=== PATIENT | female | born 1975 | race African-American/Black ===

== ENCOUNTER 2019-06-08 10:55 | Inpatient (IN) | payer OTHER ==
[2019-06-08 11:23] VITALS: BMI 24.5
--- NOTE | 2019-06-08 13:11 | HP ---
COWS - Scale Resting Pulse: 0= [place] 80 or Below Sweatin=Flushed/Facial Moisture Restless Observation: 1= Difficult to Sit Still Pupil Size: 1= Pupils >than Normal Bone or Joint Aches: 2= Severe Diffuse Aches Runny Nose/ Eye Tearin= Runny Nose/Eyes GI Upset > 30mins: 2= Nausea/Diarrhea Tremor Observation: 2= Slight Tremor Visible Yawning Observation: 2= >3x During Session Anxiety or Irritability: 2=Irritable/Anxious Goose Flesh Skin: 3=Piloerection COWS Score: 19 CIWA Score Nausea/Vomitin Muscle Tremors: 2 Anxiety: 3 Agitation: 3 Paroxysmal Sweats: 2 Orientation: 0-Oriented Tacttile Disturbances: 2-Mild Itch/Numbness/Burn Auditory Disturbances: 0-None Visual Disturbances: 0-None Headache: 2-Mild CIWA-Ar Total Score: 16 - Admission Criteria [facility]ASAS Guidelines: Admission for Medically Managed Detox: Requires at least one of the followin. CIWA greater than 12 2. Seizures within the past 24 hours 3. Delirium tremens within the past 24 hours 4. Hallucinations within the past 24 hours 5. Acute intervention needed for co occurring medical disorder 6. Acute intervention needed for co occurring psychiatric disorder 7. Severe withdrawal that cannot be handled at a lower level of care (continued vomiting, continued diarrhea, abnormal vital signs) requiring intravenous medication and/or fluids 8. Patient presents the following: CIWA greater than 12 Admission Criteria Met: Admission criteria met Admission ROS [facility] Chief Complaint: I want detox from alcohol and heroin Allergies/Adverse Reactions: Allergies Allergy/AdvReac Type Severity Reaction Status Date / Time No Known Allergies Allergy Verified 06/08/19 11:18 History of Present Illness: Patient is a 44 years old female who presents for detox from alcohol and heroin. She reports her last treatment was at [facility] 6 weeks ago. She reports blackout 6 months ago, denies seizures related to her illicit drug use. Exam Limitations: No Limitations - Ebola screening Have you traveled outside of the country in the last 21 days: No (N) Have you had contact with anyone from an Ebola affected area: No Have you been sick,other than usual withdrawal symptoms: No Do you have a fever: No - Review of Systems Constitutional: Chills, Loss of Appetite, Changes in sleep, Unintentional Wgt. Loss EENT: reports: Blurred Vision, Nose Congestion Respiratory: reports: No Symptoms reported Cardiac: reports: No Symptoms Reported GI: reports: Nausea, Poor Appetite, Poor Fluid Intake, Vomiting, Abdominal cramping : reports: No Symptoms Reported Musculoskeletal: reports: Back Pain, Joint Pain, Muscle Pain, Muscle Weakness Integumentary: reports: Flushing Neuro: reports: Headache, Numbness, Tremors Endocrine: reports: No Symptoms Reported Hematology: reports: No Symptoms Reported Psychiatric: reports: No Sypmtoms Reported Other Systems: Reviewed and Negative Patient History - Patient Medical History Hx Anemia: No Hx Asthma: No Hx Chronic Obstructive Pulmonary Disease (COPD): No Hx Cancer: No Hx Cardiac Disorders: No Hx Congestive Heart Failure: No Hx Hypertension: No Hx Hypercholesterolemia: No Hx Pacemaker: No HX Cerebrovascular Accident: No Hx Seizures: No Hx Dementia: No Hx Diabetes: No Hx Gastrointestinal Disorders: No Hx Liver Disease: No Hx Genitourinary Disorders: No Hx Sexually Transmitted Disorders: No Hx Renal Disease (ESRD): No Hx Thyroid Disease: No Hx Human Immunodeficiency Virus (HIV): No Hx Hepatitis C: No Hx Depression: No Hx Suicide Attempt: No Hx Bipolar Disorder: No Hx Schizophrenia: No - Patient Surgical History Past Surgical History: No - PPD History Previous Implant?: Yes Documented Results: Negative w/o proof Implanted On Prior R Admission?: No PPD to be Administered?: Yes - Reproductive History Patient is a Female of Child Bearing Age (11 -55 yrs old): Yes Last Menstrual Period: 05/20/19 Patient : No - Smoking Cessation Smoking history: Current every day smoker Have you smoked in the past 12 months: Yes Aproximately how many cigarettes per day: 20 Hx Chewing Tobacco Use: No Initiated information on smoking cessation: Yes 'Breaking Loose' booklet given: 06/08/19 - Substances abused Alcohol Substance route: Oral Frequency: Daily Amount used: 6-8 24oz beers, 1pint of vodka Age of first use: 11 Date of last use: 06/08/19 Heroin Substance route: Inhalation Frequency: Daily Amount used: 20 bags/day Age of first use: 41 Date of last use: 06/07/19 Admission Physical Exam BHS - Vital Signs Vital Signs: Vital Signs - 24 hr 06/08/19 11:19 Temperature 98.5 F Pulse Rate 73 Respiratory 14 Rate Blood Pressure 150/92 - Physical General Appearance: Yes: Mild Distress HEENTM: Yes: Hearing grossly Normal, Normocephalic, Normal Voice, JESSE Respiratory: Yes: Chest Non-Tender, Lungs Clear, Normal Breath Sounds, No Respiratory Distress, No Accessory Muscle Use Neck: Yes: No masses,lesions,Nodules, Supple Breast: Yes: Breast Exam Deferred Cardiology: Yes: Regular Rhythm, Regular Rate, S1, S2 Abdominal: Yes: Normal Bowel Sounds, Non Tender, Soft Genitourinary: Yes: Within Normal Limits Back: Yes: Normal Inspection Musculoskeletal: Yes: Gait Steady, Back pain, Muscle Pain Extremities: Yes: Tremors Neurological: Yes: Alert, Normal Mood/Affect, Normal Response Integumentary: Yes: Clammy, Other (several scars from picking skin) Lymphatic: Yes: Within Normal Limits - Diagnostic (1) Alcohol dependence, uncomplicated Current Visit: Yes Status: Acute (2) Heroin addiction Current Visit: Yes Status: Acute (3) Nicotine addiction Current Visit: Yes Status: Acute Qualifiers: Nicotine product type: cigarettes Substance use status: uncomplicated Qualified Code(s): F17.210 - Nicotine dependence, cigarettes, uncomplicated (4) Cocaine abuse Current Visit: Yes Status: Acute Cleared for Admission [facility] - Detox or Rehab [facility] Level of Care: Medically Managed Detox Regimen/Protocol: Methadone/Librium Claeared for Rehab Admission: Yes Breathalyzer - Breathalyzer Breathalyzer: 0 Urine Drug Screen - Test Device Lot number: [id number] Expiration date: 02/15/21 - Control Is test valid?: Yes - Results Drug screen NEGATIVE: No Urine drug screen results: SHANA-Cocaine, FEN-Fentanyl, MOP-Opiates Inpatient Rehab Admission - Rehab Decision to Admit Inpatient rehab admission?: No
[2019-06-08] MEDS ORDERED: BISMUTH SUBSALICYLATE 524 MG/30 ML UD PO PRN (13:18)
[2019-06-08] MEDS ORDERED: MAGNESIUM HYDROX 2400MG/30ML ORAL SUSPENSION 30 ML CUP PO PRN (13:18)
[2019-06-08] MEDS ORDERED: NICOTINE POLACRILEX 2 MG GUM BUC PRN (13:18)
[2019-06-08] MEDS ORDERED: MAGNESIUM CITRATE 300 ML BOTTLE PO PRN (13:18)
[2019-06-08] MEDS ORDERED: cloNIDine HCL 0.1 MG TABLET PO PRN (13:18)
[2019-06-08] MEDS ORDERED: METHOCARBAMOL 500 MG TABLET PO PRN (13:18)
[2019-06-08] MEDS ORDERED: chlordiazePOXIDE HCL 25 MG CAPSULE PO PRN (13:18)
[2019-06-08] MEDS ORDERED: MELATONIN 5 MG TABLETS PO PRN (13:18)
[2019-06-08] MEDS ORDERED: IBUPROFEN 400 MG TABLET (FP) PO PRN (13:18)
[2019-06-08] MEDS ORDERED: NALOXONE HCL 0.4 MG/ML VIAL IM PRN (13:18)
[2019-06-08] MEDS ORDERED: MAG HYDROX/AL HYDROX/SIMETH 30 ML UNIT-DOSE CUP PO PRN (13:18)
[2019-06-08] MEDS ORDERED: METHADONE HCL 10 MG TABLET (FOR DETOX USE ONLY) PO ONE (13:18)
[2019-06-08] MEDS ORDERED: hydrOXYzine PAMOATE 25 MG CAPSULE (FP) PO PRN (13:18)
[2019-06-08] MEDS ORDERED: ACETAMINOPHEN 325 MG TABLET (FP) PO PRN ×2 (13:18)
[2019-06-08] MEDS ORDERED: MENTHOL/PHENOL 1 EACH UD MM PRN (13:18)
[2019-06-08] MEDS: NICOTINE 14 MG/24 HOURS TOPICAL PATCH TD SCH (15:20)
[2019-06-08] MEDS: chlordiazePOXIDE HCL 25 MG CAPSULE PO SCH ×2 (17:46→22:13)
[2019-06-08] MEDS ORDERED: ONDANSETRON *ODT* 4 MG TABLET SL PRN (19:00)
[2019-06-08] MEDS: THIAMINE HCL 100 MG TABLET (FP) PO SCH (22:13)
[2019-06-09] MEDS: chlordiazePOXIDE HCL 25 MG CAPSULE PO SCH ×4 (05:51→22:12)
[2019-06-09 09:18] LABS: HEMATOCRIT 43.3 % (32.4-45.2); HEMOGLOBIN 13.9 GM/dL (10.7-15.3); MCH 28.9 pg (25.7-33.7); MCHC 32.2 g/dl (32.0-36.0); MEAN CELL VOLUME 89.7 fl (80-96); MEAN PLT VOLUME 9.8 fl (7.5-11.1); PLATELET COUNT 239 K/MM3 (134-434); RBC 4.83 M/mm3 (3.60-5.2); RDW 15.5 % (11.6-15.6); WHITE BLOOD COUNT 10.5 K/mm3 (4.0-10.0)
[2019-06-09 09:22] LABS: ALBUMIN 3.4 g/dl (3.4-5.0); BILIRUBIN,TOTAL 0.5 mg/dL (0.2-1); CALCIUM 9.3 mg/dL (8.5-10.1); CREATININE 1.1 mg/dL (0.55-1.3); POTASSIUM 3.3 mmol/L (3.5-5.1); TOT PROT 6.9 g/dl (6.4-8.2)
[2019-06-09] MEDS ORDERED: METHADONE HCL 10 MG TABLET (FOR DETOX USE ONLY) ONE (09:39)
[2019-06-09] MEDS ORDERED: METHADONE HCL 5 MG TABLET (FOR DETOX USE ONLY) ONE (09:39)
[2019-06-09] MEDS ORDERED: METHADONE (DETOX) 20 MG, METHADONE (DETOX) 5 MG PO ONE (10:00)
[2019-06-09] MEDS: NICOTINE 14 MG/24 HOURS TOPICAL PATCH TD SCH (10:17)
[2019-06-09] MEDS: PRENATAL VITAMINS W/ FOLIC ACID TABLET (FP) PO SCH (10:18)
--- NOTE | 2019-06-09 13:37 | PN ---
S CIWA - CIWA Score Nausea/Vomitin-Mild Nausea/No Vomiting Muscle Tremors: 4-Moderate,w/Arms Extend Anxiety: 3 Agitation: 3 Paroxysmal Sweats: 3 Orientation: 0-Oriented Tacttile Disturbances: 0-None Auditory Disturbances: 0-None Visual Disturbances: 0-None Headache: 0-None Present CIWA-Ar Total Score: 14 BHS COWS - Scale Resting Pulse: 0= [place] 80 or Below Sweatin= Chills/Flushing Restless Observation: 3= Extraneous Movement Pupil Size: 0= Normal to Room Light Bone or Joint Aches: 2= Severe Diffuse Aches Runny Nose/ Eye Tearin= Runny Nose/Eyes GI Upset > 30mins: 3= Vomiting/Diarrhea Tremor Observation of Outstretched Hands: 2= Slight Tremor Visible Yawning Observation: 0= None Anxiety or Irritability: 2=Irritable/Anxious Goose Flesh Skin: 0=Smooth Skin COWS Score: 15 BHS Progress Note (SOAP) Subjective: Anxious, restless, interrupted sleep, c/o left knee pain from arthritis stating she uses knee brace at home, requesting emeli bandage since knee brace not available. Objective: 06/09/19 13:35 Last Vital Signs Temp Pulse Resp BP Pulse Ox 97.9 F 80 16 113/68 06/09/19 13:12 06/09/19 13:12 06/09/19 13:12 06/09/19 13:12 Laboratory Tests 06/09/19 06/09/19 06/09/19 07:40 07:40 07:40 WBC 10.5 H RBC 4.83 Hgb 13.9 Hct 43.3 MCV 89.7 MCH 28.9 MCHC 32.2 RDW 15.5 Plt Count 239 MPV 9.8 Sodium 141 Potassium 3.3 L Chloride 106 Carbon Dioxide 25 Anion Gap 10 BUN 7.0 Creatinine 1.1 Est GFR (CKD-EPI)AfAm 69.73 Est GFR (CKD-EPI)NonAf 60.16 Random Glucose 91 Calcium 9.3 Total Bilirubin 0.5 AST 12 L ALT 21 Alkaline Phosphatase 65 Total Protein 6.9 Albumin 3.4 RPR Titer Nonreactive HIV 1&2 Antibody Screen HIV P24 Antigen 06/09/19 07:40 WBC RBC Hgb Hct MCV MCH MCHC RDW Plt Count MPV Sodium Potassium Chloride Carbon Dioxide Anion Gap BUN Creatinine Est GFR (CKD-EPI)AfAm Est GFR (CKD-EPI)NonAf Random Glucose Calcium Total Bilirubin AST ALT Alkaline Phosphatase Total Protein Albumin RPR Titer HIV 1&2 Antibody Screen Preliminary positive HIV P24 Antigen Negative Labs reviewed: K 3.3, HIV test preliminary positive Assessment: 06/09/19 13:37 Withdrawal sxs Noted with Mild hypokalemia and preliminary positive HIV test Plan: Continue detox Encouraged PO water intake Mild hypokalemia: K DUR 40 Meq PO x 2 doses (give at least 4 hours apart), check serum K level in AM Preliminary positive HIV test: follow up HIV test result, ordered CD4 and viral load test, HIV confirmatory test and hepatitis C. Ordered for GC/Chlamydia urine. Patient denied having HIV as per admission H&P. Patient needs to be educated when HIV test result completed.
[2019-06-09] MEDS ORDERED: POTASSIUM CHLORIDE TABS 20 MEQ TABLET.ER (FP) PO ONE ×2 (13:43→20:00)
[2019-06-09] MEDS: THIAMINE HCL 100 MG TABLET (FP) PO SCH (22:12)
[2019-06-10] MEDS: chlordiazePOXIDE HCL 25 MG CAPSULE PO SCH ×4 (05:34→22:14)
--- NOTE | 2019-06-10 07:13 | EKG ---
Test Reason : Blood Pressure : / mmHG Vent. Rate : 071 BPM Atrial Rate : 071 BPM P-R Int : 112 ms QRS Dur : 076 ms QT Int : 392 ms P-R-T Axes : 062 073 042 degrees QTc Int : 425 ms NORMAL SINUS RHYTHM NORMAL ECG NO PREVIOUS ECGS AVAILABLE Confirmed by YUKI LEO MD ([id number]) on 06/10/2019 7:13:42 AM Referred By: Confirmed By:YUKI LEO MD
[2019-06-10] MEDS ORDERED: METHADONE HCL 10 MG TABLET (FOR DETOX USE ONLY) PO ONE (10:00)
[2019-06-10] MEDS: PRENATAL VITAMINS W/ FOLIC ACID TABLET (FP) PO SCH (10:54)
[2019-06-10] MEDS: NICOTINE 14 MG/24 HOURS TOPICAL PATCH TD SCH (10:55)
--- NOTE | 2019-06-10 10:57 | PN ---
[facility] CIWA - CIWA Score Nausea/Vomitin-Mild Nausea/No Vomiting Muscle Tremors: 1-None Visible, but [place] Anxiety: 2 Agitation: 2 Paroxysmal Sweats: No Perspiration Orientation: 0-Oriented Tacttile Disturbances: 1-Very Mild Itch/Numbness Auditory Disturbances: 0-None Visual Disturbances: 1-Very Mild Sensitivity Headache: 1-Very Mild CIWA-Ar Total Score: 9 BHS COWS - Scale Resting Pulse: 0= [place] 80 or Below Sweatin= Chills/Flushing Restless Observation: 1= Difficult to Sit Still Pupil Size: 1= Pupils >than Normal Bone or Joint Aches: 1= Mild Discomfort Runny Nose/ Eye Tearin= Nasal Congestion GI Upset > 30mins: 2= Nausea/Diarrhea Tremor Observation of Outstretched Hands: 2= Slight Tremor Visible Yawning Observation: 1= 1-2x During Session Anxiety or Irritability: 2=Irritable/Anxious Goose Flesh Skin: 0=Smooth Skin COWS Score: 12 BHS Progress Note (SOAP) Subjective: alert,irritable,anxious,interrupted sleep,tremor,pain in the body and back Objective: 06/10/19 10:54 Vital Signs Temperature 99.0 F 06/10/19 10:50 Pulse Rate 71 06/10/19 10:50 Respiratory Rate 18 06/10/19 10:50 Blood Pressure 98/66 06/10/19 10:50 O2 Sat by Pulse Oximetry (%) 06/10/19 10:54 awaiting for cofirmation report on hiv Assessment: 06/10/19 10:55 withdrawal symptom Plan: continue detox methadone and librium regimen,pending on confirmation report on hiv and repaat k
[2019-06-10] MEDS: THIAMINE HCL 100 MG TABLET (FP) PO SCH (22:14)
[2019-06-11] MEDS ORDERED: chlordiazePOXIDE HCL 10 MG CAPSULE PO PRN
[2019-06-11] MEDS: chlordiazePOXIDE HCL 10 MG CAPSULE PO SCH ×4 (05:17→22:05)
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
[2019-06-11] MEDS ORDERED: METHADONE HCL 5 MG TABLET (FOR DETOX USE ONLY) ONE (09:25)
[2019-06-11] MEDS ORDERED: METHADONE HCL 10 MG TABLET (FOR DETOX USE ONLY) ONE (09:25)
[2019-06-11] MEDS ORDERED: METHADONE (DETOX) 10 MG, METHADONE (DETOX) 5 MG PO ONE (10:00)
[2019-06-11] MEDS: PRENATAL VITAMINS W/ FOLIC ACID TABLET (FP) PO SCH (10:05)
[2019-06-11] MEDS: NICOTINE 14 MG/24 HOURS TOPICAL PATCH TD SCH (10:08)
[2019-06-11] MEDS: LIDOCAINE 5% TOPICAL PATCH TP SCH (13:00)
--- NOTE | 2019-06-11 15:01 | PN ---
S CIWA - CIWA Score Nausea/Vomitin-No Nausea/No Vomiting Muscle Tremors: None Anxiety: 4-Mod. Anxious/Guarded Agitation: 3 Paroxysmal Sweats: No Perspiration Orientation: 0-Oriented Tacttile Disturbances: 1-Very Mild Itch/Numbness Auditory Disturbances: 0-None Visual Disturbances: 0-None Headache: 0-None Present CIWA-Ar Total Score: 8 BHS COWS - Scale Resting Pulse: 1= [place] 81-100 Sweatin= Chills/Flushing Restless Observation: 1= Difficult to Sit Still Pupil Size: 0= Normal to Room Light Bone or Joint Aches: 0= None Runny Nose/ Eye Tearin= Runny Nose/Eyes GI Upset > 30mins: 0= None Tremor Observation of Outstretched Hands: 0= None Yawning Observation: 1= 1-2x During Session Anxiety or Irritability: 2=Irritable/Anxious Goose Flesh Skin: 0=Smooth Skin COWS Score: 8 S Progress Note (SOAP) Subjective: Anxious, Restless, Runny Nose, Body Aches. Objective: PATIENT A & O X 3, OBSERVED AMBULATING ON DETOX UNIT UNASSISTED. IN NO ACUTE DISTRESS. 06/11/19 14:58 Vital Signs Temperature 97.7 F 06/11/19 12:58 Pulse Rate 81 06/11/19 12:58 Respiratory Rate 18 06/11/19 12:58 Blood Pressure 100/63 06/11/19 12:58 O2 Sat by Pulse Oximetry (%) Laboratory Tests 06/08/19 06/09/19 06/09/19 12:29 07:40 07:40 WBC 10.5 H RBC 4.83 Hgb 13.9 Hct 43.3 MCV 89.7 MCH 28.9 MCHC 32.2 RDW 15.5 Plt Count 239 MPV 9.8 Sodium 141 Potassium 3.3 L Chloride 106 Carbon Dioxide 25 Anion Gap 10 BUN 7.0 Creatinine 1.1 Est GFR (CKD-EPI)AfAm 69.73 Est GFR (CKD-EPI)NonAf 60.16 Random Glucose 91 Calcium 9.3 Total Bilirubin 0.5 AST 12 L ALT 21 Alkaline Phosphatase 65 Total Protein 6.9 Albumin 3.4 POC Urine HCG, Qual Negative RPR Titer Hep C Ab Diagnostic HIV 1&2 Ag/Ab, 4th Gen HIV 1&2 Antibody Screen HIV P24 Antigen 06/09/19 06/09/19 06/09/19 07:40 07:40 07:40 WBC RBC Hgb Hct MCV MCH MCHC RDW Plt Count MPV Sodium Potassium Chloride Carbon Dioxide Anion Gap BUN Creatinine Est GFR (CKD-EPI)AfAm Est GFR (CKD-EPI)NonAf Random Glucose Calcium Total Bilirubin AST ALT Alkaline Phosphatase Total Protein Albumin POC Urine HCG, Qual RPR Titer Nonreactive Hep C Ab Diagnostic HIV 1&2 Ag/Ab, 4th Gen Non reactive HIV 1&2 Antibody Screen Preliminary positive HIV P24 Antigen Negative 06/10/19 06/10/19 08:55 08:55 WBC RBC Hgb Hct MCV MCH MCHC RDW Plt Count MPV Sodium Potassium 4.5 Chloride Carbon Dioxide Anion Gap BUN Creatinine Est GFR (CKD-EPI)AfAm Est GFR (CKD-EPI)NonAf Random Glucose Calcium Total Bilirubin AST ALT Alkaline Phosphatase Total Protein Albumin POC Urine HCG, Qual RPR Titer Hep C Ab Diagnostic 0.1 HIV 1&2 Ag/Ab, 4th Gen HIV 1&2 Antibody Screen HIV P24 Antigen LABS NOTED. DETOX ADMISSION HIV AB PRELIMINARY POSITIVE RESULT NOTED. CURRENTLY AWAITING HIV CONFIRMATORY RESULT. 06/11/19 14:59 Assessment: 06/11/19 15:01 WITHDRAWAL SYMPTOMS. Plan: CONTINUE DETOX.
[2019-06-11] MEDS: MELATONIN 5 MG TABLETS PO PRN (22:05)
[2019-06-11] MEDS: THIAMINE HCL 100 MG TABLET (FP) PO SCH (22:05)
[2019-06-11] MEDS: LIDOCAINE PATCH REMOVAL MC SCH (22:07)
[2019-06-12] MEDS: chlordiazePOXIDE HCL 10 MG CAPSULE PO SCH ×2 (05:59→17:31)
[2019-06-12] MEDS ORDERED: METHADONE HCL 10 MG TABLET (FOR DETOX USE ONLY) PO ONE (10:00)
[2019-06-12] MEDS: PRENATAL VITAMINS W/ FOLIC ACID TABLET (FP) PO SCH (10:06)
[2019-06-12] MEDS: LIDOCAINE 5% TOPICAL PATCH TP SCH (10:07)
[2019-06-12] MEDS: NICOTINE 14 MG/24 HOURS TOPICAL PATCH TD SCH (10:07)
--- NOTE | 2019-06-12 10:21 | PN ---
S CIWA - CIWA Score Nausea/Vomitin-No Nausea/No Vomiting Muscle Tremors: 1-None Visible, but [place] Anxiety: 1-Mildly Anxious Agitation: 1-Slight > Activity Paroxysmal Sweats: No Perspiration Orientation: 0-Oriented Tacttile Disturbances: 0-None Auditory Disturbances: 0-None Visual Disturbances: 0-None Headache: 1-Very Mild CIWA-Ar Total Score: 4 BHS Progress Note (SOAP) Subjective: alert,anxious,interrupted sleep,pain in left knee,arthritis Objective: 06/12/19 10:18 Vital Signs Temperature 97.8 F 06/12/19 08:46 Pulse Rate 80 06/12/19 08:46 Respiratory Rate 18 06/12/19 08:46 Blood Pressure 122/70 06/12/19 08:46 O2 Sat by Pulse Oximetry (%) 06/12/19 10:18 Laboratory Last Values WBC 10.5 K/mm3 (4.0-10.0) H 06/09/19 07:40 RBC 4.83 M/mm3 (3.60-5.2) 06/09/19 07:40 Hgb 13.9 GM/dL (10.7-15.3) 06/09/19 07:40 Hct 43.3 % (32.4-45.2) 06/09/19 07:40 MCV 89.7 fl (80-96) 06/09/19 07:40 MCH 28.9 pg (25.7-33.7) 06/09/19 07:40 MCHC 32.2 g/dl (32.0-36.0) 06/09/19 07:40 RDW 15.5 % (11.6-15.6) 06/09/19 07:40 Plt Count 239 K/MM3 (134-434) 06/09/19 07:40 MPV 9.8 fl (7.5-11.1) 06/09/19 07:40 Sodium 141 mmol/L (136-145) 06/09/19 07:40 Potassium 4.5 mmol/L (3.5-5.1) 06/10/19 08:55 Chloride 106 mmol/L (98-107) 06/09/19 07:40 Carbon Dioxide 25 mmol/L (21-32) 06/09/19 07:40 Anion Gap 10 MMOL/L (8-16) 06/09/19 07:40 BUN 7.0 mg/dL (7-18) 06/09/19 07:40 Creatinine 1.1 mg/dL (0.55-1.3) 06/09/19 07:40 Est GFR (CKD-EPI)AfAm 69.73 06/09/19 07:40 Est GFR (CKD-EPI)NonAf 60.16 06/09/19 07:40 Random Glucose 91 mg/dL (74-106) 06/09/19 07:40 Calcium 9.3 mg/dL (8.5-10.1) 06/09/19 07:40 Total Bilirubin 0.5 mg/dL (0.2-1) 06/09/19 07:40 AST 12 U/L (15-37) L 06/09/19 07:40 ALT 21 U/L (13-61) 06/09/19 07:40 Alkaline Phosphatase 65 U/L (45-117) 06/09/19 07:40 Total Protein 6.9 g/dl (6.4-8.2) 06/09/19 07:40 Albumin 3.4 g/dl (3.4-5.0) 06/09/19 07:40 POC Urine HCG, Qual Negative 06/08/19 12:29 RPR Titer Nonreactive (NONREACTIVE) 06/09/19 07:40 Hep C Ab Diagnostic 0.1 s/co ratio (0.0-0.9) 06/10/19 08:55 HIV 1&2 Ag/Ab, 4th Gen Non reactive (Non Reactive) 06/09/19 07:40 HIV 1&2 Antibody Screen Preliminary positive 06/09/19 07:40 HIV P24 Antigen Negative 06/09/19 07:40 confirmation repot hiv is non reactive explain to patient Assessment: 06/12/19 10:20 withdrawal symptom Plan: continue detox methadone regimen,discharge in am
[2019-06-12] MEDS: LIDOCAINE PATCH REMOVAL MC SCH (22:01)
[2019-06-12] MEDS: MELATONIN 5 MG TABLETS PO PRN (22:01)
[2019-06-12] MEDS: THIAMINE HCL 100 MG TABLET (FP) PO SCH (22:01)
[2019-06-13] MEDS ORDERED: chlordiazePOXIDE HCL 10 MG CAPSULE PO ONE (05:00)
[2019-06-13] MEDS ORDERED: METHADONE HCL 5 MG TABLET (FOR DETOX USE ONLY) PO ONE (06:00)
--- NOTE | 2019-06-13 08:23 | DS ---
[facility] Detox Discharge Summary Admission Date: 06/08/19 Discharge Date: 06/13/19 - History Present History: Alcohol Dependence, Opioid Dependence - Physical Exam Results Vital Signs: Vital Signs Temperature 98.4 F 06/13/19 06:56 Pulse Rate 71 06/13/19 06:56 Respiratory Rate 18 06/13/19 06:56 Blood Pressure 108/61 06/13/19 06:56 O2 Sat by Pulse Oximetry (%) Pertinent Admission Physical Exam Findings: pt arrived in withdrawals Laboratory Tests 06/08/19 06/09/19 06/09/19 12:29 07:40 07:40 WBC 10.5 H RBC 4.83 Hgb 13.9 Hct 43.3 MCV 89.7 MCH 28.9 MCHC 32.2 RDW 15.5 Plt Count 239 MPV 9.8 Sodium 141 Potassium 3.3 L Chloride 106 Carbon Dioxide 25 Anion Gap 10 BUN 7.0 Creatinine 1.1 Est GFR (CKD-EPI)AfAm 69.73 Est GFR (CKD-EPI)NonAf 60.16 Random Glucose 91 Calcium 9.3 Total Bilirubin 0.5 AST 12 L ALT 21 Alkaline Phosphatase 65 Total Protein 6.9 Albumin 3.4 POC Urine HCG, Qual Negative RPR Titer Hep C Ab Diagnostic HIV 1&2 Ag/Ab, 4th Gen HIV 1&2 Antibody Screen HIV P24 Antigen 06/09/19 06/09/19 06/09/19 07:40 07:40 07:40 WBC RBC Hgb Hct MCV MCH MCHC RDW Plt Count MPV Sodium Potassium Chloride Carbon Dioxide Anion Gap BUN Creatinine Est GFR (CKD-EPI)AfAm Est GFR (CKD-EPI)NonAf Random Glucose Calcium Total Bilirubin AST ALT Alkaline Phosphatase Total Protein Albumin POC Urine HCG, Qual RPR Titer Nonreactive Hep C Ab Diagnostic HIV 1&2 Ag/Ab, 4th Gen Non reactive HIV 1&2 Antibody Screen Preliminary positive HIV P24 Antigen Negative 06/10/19 06/10/19 08:55 08:55 WBC RBC Hgb Hct MCV MCH MCHC RDW Plt Count MPV Sodium Potassium 4.5 Chloride Carbon Dioxide Anion Gap BUN Creatinine Est GFR (CKD-EPI)AfAm Est GFR (CKD-EPI)NonAf Random Glucose Calcium Total Bilirubin AST ALT Alkaline Phosphatase Total Protein Albumin POC Urine HCG, Qual RPR Titer Hep C Ab Diagnostic 0.1 HIV 1&2 Ag/Ab, 4th Gen HIV 1&2 Antibody Screen HIV P24 Antigen today pt is aaox3 ambulating no acute distress no s/s of withdrawals - Treatment Hospital Course: Detox Protocol Followed, Detoxed Safely, Responded well, Discharged Condition Good, Rehab Referral Accepted Patient has Accepted a Rehab Referral to: referred to [facility] inpatient rehab - Medication Discharge Medications: Ambulatory Orders NK [No Known Home Medication] 06/08/19 - Diagnosis (1) Alcohol dependence, uncomplicated Current Visit: Yes Status: Chronic (2) Cocaine abuse Current Visit: Yes Status: Chronic (3) Substance induced mood disorder Current Visit: Yes Status: Acute (4) Substance-induced sleep disorder Current Visit: Yes Status: Acute (5) Uncomplicated opioid dependence Current Visit: Yes Status: Chronic (6) Nicotine addiction Current Visit: Yes Status: Chronic Qualifiers: Nicotine product type: cigarettes Substance use status: uncomplicated Qualified Code(s): F17.210 - Nicotine dependence, cigarettes, uncomplicated - AMA Did Patient Leave Against Medical Advice: No
[2019-06-13 09:28] VITALS: BP 130/69; PULSE 72; TEMP 97.9
[2019-06-13] MEDS: PRENATAL VITAMINS W/ FOLIC ACID TABLET (FP) PO SCH (09:54)
[2019-06-13] MEDS: LIDOCAINE 5% TOPICAL PATCH TP SCH (09:54)
[2019-06-13] MEDS: NICOTINE 14 MG/24 HOURS TOPICAL PATCH TD SCH (09:54)
== END 2019-06-13 09:59 | disposition home or self-care (01) | DRG 773 ==
LOC: YASAS 10:55 → Y6N 13:31
PROVIDERS: ADMIT Surgery; ATTEND Surgery
PROC: HZ2ZZZZ Detoxification Services for Substance Abuse Treatment (ICD-10-PCS; principal; 2019-06-11)
DX: F11.23 Opioid dependence with withdrawal (principal); F10.230 Alcohol dependence with withdrawal, uncomplicated; F14.10 Cocaine abuse, uncomplicated; F17.213 Nicotine dependence, cigarettes, with withdrawal; F19.24 Other psychoactive substance dependence with psychoactive substance-induced mood disorder; F19.282 Other psychoactive substance dependence with psychoactive substance-induced sleep disorder; E87.6 Hypokalemia
CPT/HCPCS: 36415; 80053; 81025; 84132; 85027; 86593; 86803; 87389; 93005; 93010; J0735; Q0162